=== PATIENT | male | born 1945 | race Two or more races ===

== ENCOUNTER 2020-08-30 22:57 | Emergency (ER) | payer MEDICARE, OTHER ==
[~2020-08-30] VITALS: Ht 152.4 cm; Wt 65.8 kg
--- NOTE | 2020-08-30 23:17 | NUR ---
BIBSELF C/O COUGH AND BODY ACHES. RECENTLY TESTED POS COVID X2 DAYS AGO. O2 SAT 99% ROOM AIR. NO ACUTE DISTRESS NOTED AT THIS TIME. AMBULATORY WITH STEADY GAIT. WILL CONTINUE TO MONITOR
[2020-08-31] MEDS ORDERED: GUAIFENESIN/D-METHORPHAN HB 5 ML UDC PO ONE
[2020-08-31] MEDS ORDERED: KETOROLAC TROMETHAMINE INJ 60 MG/2 ML VIAL IM ONE
[2020-08-31] MEDS ORDERED: KETOROLAC TROMETHAMINE INJ 30 MG/ML VIAL ONE (00:20)
[2020-08-31] MEDS ORDERED: GUAIFENESIN/D-METHORPHAN HB 5 ML UDC ONE (00:20)
--- NOTE | 2020-08-31 00:54 | NUR ---
Patient discharged to home in stable condition. Written and verbal after care instructions given. Patient verbalizes understanding of instruction.Pt ambulatory with a steady gait
[2020-08-31 00:55] VITALS: BP 148/86
== END 2020-08-31 00:55 | disposition home or self-care (01) ==
LOC: ER 23:02
DX: U07.1 COVID-19 (principal); I10 Essential (primary) hypertension; E11.9 Type 2 diabetes mellitus without complications
CPT/HCPCS: 71045; 96372; 99283; J1885